=== PATIENT | female | born 1995 | race Caucasian/White ===

== ENCOUNTER 2021-03-12 16:00 | Outpatient (RCR) | payer BC, SELFPAY ==
--- NOTE | 2021-02-28 16:05 | HP.PTEVAL_ITS ---
Patient's Visit Information BRANDY BEAN is a 25 year old F referred to Physical Therapy by SUE CANNON with a diagnosis of L posterior tibial tendonits. Date of Evaluation: 02/28/21 Physical Therapist: Lauri Prescott, PT, ATC - Visit Plan Frequency: 2-3x /Week Duration: 4-6 Weeks Plan: Core strengthening, L toe/ankle mobilizations (no mid foot), L ankle stretching and strengthening, balance and proprio, bike, and HEP - Subjective Pt reports her L foot has been sore for 7 1/2 weeks. Pt notes she is an avid runner, and reports she ran 3 miles one day and 2 miles the next and was unable to walk the following day. Pt reports she went to her orthopedic where she received x-rays and was told there is no fracture. Pt reports she was told she has tendonitis and a ganglion cyst in her L foot. Pt denies tingling or numbness at this time. Pt denies pain in her R foot. Pt reports she was in a boot for 4 weeks, and then weaned her way out of it. Pt reports the pain is much less now, but notes even if she attempts to ambulate now for a prolonged time that her pain returns. Pt denies sleep difficulty secondary to pain. Pt reports she is not limited from any other activity. 0/10 pain at rest, 5/10 pain with prolonged ambulation - Pain L foot Pain Intensity (Out of 10): 0 Pain Intensity Range: 5 - Objective Neuro: B LE sensation is WNL to light touch. B achilles reflex= 2/3. Palpation: Pt is very sore on the head of the first metarsal. No obvious deformity at this time. ROM: L ankle DF= 4, PF= 75 degrees: R ankle DF= 7, PF= 75 degrees. MMT: L ankle PF and INV= 4-/5 and are painful. All other B ankle 5/5 throughout. Gait: Pt ambulates with valgus in the knee region Bilat indicating core weakness. Same occurs with lunging - Balance/Special Test Scores Lower Extremity Functional Score: 67 - Goals Goal 1:: Decrease L ankle pain x 50% to aid with ambulation Goal Time Frame: 4-6 Weeks Goal 2:: Increase L ankle DF ROM x 10 degrees to aid with decreasing L ankle pain Goal 3:: Increase L ankle strength x 1 grade to aid with return to running without limitation Goal Time Frame: 4-6 Weeks Goal 4:: I with HEP Goal Time Frame: 4-6 Weeks - Rehabilitation Potential Physical Therapy Diagnosis: L medial ankle pain, weakness, and limited ROM secondary to L posterior tibial tendonitis Rehabilitation Potential: Good - Anticipated Interventions Patient/Client Instruction: Educate patient on: Condition, Plan of Care For the Purpose of:: To improve self management Therapeutic Exercise to Include: Strength training, Endurance training, Balance training, Flexibilty training, Active ROM, Dynamic Lumbar Stabilization For the Purpose of:: To decrease pain, To increase ROM, To improve muscle performance and motor function Cryotherapy (ice pack, ice massage): Yes For the Purpose of:: To decrease pain Thank you for the opportunity to evaluate your patient. For Medicare and Medicare HMO plans, please review the plan of care and approve it. It will need to be FAXED BACK to us at [phone] for Medicare purposes. For Medicare only, by signing this I certify the plan of care. Please let me know if there are questions or concerns regarding this plan of care. Physician Signature: Dat e:
--- NOTE | 2021-06-04 09:41 | HP.PT.NRP ---
BARNDY BEAN was seen in my office for initial evaluation on 02/28/21. The following Plan of Care was established for this patient: Initial Frequency: 2-3x /Week Initial Duration: 4-6 Weeks Patient/Client Instruction: Educate patient on: Condition, Plan of Care For the Purpose of:: To improve self management Therapeutic Exercise to Include: Strength training, Endurance training, Balance training, Flexibilty training, Active ROM, Dynamic Lumbar Stabilization For the Purpose of:: To decrease pain, To increase ROM, To improve muscle performance and motor function Cryotherapy (ice pack, ice massage): Yes For the Purpose of:: To decrease pain This patient was last seen in our office . Pertinent comments regarding their Physical therapy will appear below: Pt was treated for 3 PT visits for L LE pain through the date of 03/12/21. Pt has not returned today and is therefore discontinued at this time. At this point I will be discontinuing this patient from physical therapy. I would be happy to see this patient again in the future if found appropriate by the physician. Thank you! Lauri Prescott, PT, ATC Balance/Gait/Functional tests - Balance/Special Test Scores Lower Extremity Functional Score: 67
== END 2021-03-12 19:00 | disposition home or self-care (01) ==
LOC: PT 16:00
PROVIDERS: Visit Provider Orthopaedic Surgery
DX: M76.822 Posterior tibial tendinitis, left leg (principal)
CPT/HCPCS: 97110; 97140; 97161

== ENCOUNTER → 2021-12-26 | Outpatient (CLI) | payer BC, SELFPAY ==
[2021-12-26 17:50] LABS: Absolute Lymphocyte Count 3.05 X10^3/uL (0.83-4.51); Absolute Neutrophil Count 6.4 X10^3/uL (2.0-7.7); Basophil# 0.05 X10^3/uL; Basophil% 0.5 % (0-1); Eosinophil# 0.19 X10^3/uL; Eosinophils% 1.8 % (0-5); Hematocrit 46.8 % (37-47); Hemoglobin 15.3 g/dL (12.0-15.0); Lymphocyte # 3.05 X10^3/ul (0.83-4.51); Lymphocyte % 29.6 % (19-41); Mean Corp Hgb Conc 32.7 g/dL (32-36); Mean Corpuscular Hgb 30.9 pg (27.0-32.0); Mean Corpuscular Volume 94.5 fL (81-99); Mean Platelet Vol. 10.9 fl (6.2-12.0); Monocyte# 0.61 X10^3/uL; Monocyte% 5.9 % (0-10); NRBC Flagged by Analyzer 0 % (0-5); Neutrophil # 6.38 X10^3/uL (2.7-7.7); Neutrophil % 61.9 % (47-70); Platelet Count 318 K/mm3 (150-450); RBC Distribution Width CV 11.9 % (11.6-14.6); RBC Distribution Width SD 41.4 fl (35.1-43.9); Red Blood Count 4.95 M/mm3 (4.2-5.4); White Blood Count 10.3 K/mm3 (4.4-11.0)
[2021-12-26 18:09] LABS: Vitamin B12 377 pg/mL (211-911); Vitamin D,25 Hydroxy 47.2 ng/mL
[2021-12-26 18:22] LABS: ALB/GLOB Ratio 1.1 RATIO (0.9-2.4); AST(SGOT) 18 U/L (15-37); Alanine Aminotransfer ALT/SGPT 24 U/L (13-56); Albumin, Serum 4.3 g/dL (3.2-5.0); Alkaline Phosphatase 58 U/L (45-117); Anion Gap 7 (5-15); BUN 16 mg/dL (7-18); Calcium,Total 9.9 mg/dL (8.5-10.1); Chloride 106 mmol/L (98-107); Cholesterol 196 mg/dL (200); EST Glomerular Filtration Rate 91 mL/min (>60); Est Glom Filt Rate - Afr Amer 110 mL/min (>60); Ferritin 52 ng/mL (8-252); Globulin 3.9 g/dL (2.2-4.2); Glucose 95 mg/dL (74-106); High Density Lipoprotein 74 mg/dL; Protein, Total 8.2 g/dL (6.4-8.2); Sodium Level 139 mmol/L (136-145); Thyroid Stim Hormone (TSH) 1.55 uIU/mL (0.358-3.74); Triglycerides 78 mg/dL; Very Low Density Lipoprotein 16 mg/dL (5-40)
== END | disposition home or self-care (01) ==
LOC: MFPLAB 15:50
PROVIDERS: PCP Family Medicine; Referring Provider Family Medicine; Visit Provider Family Medicine
DX: Z13.0 Encounter for screening for diseases of the blood and blood-forming organs and certain disorders involving the immune mechanism (principal); Z13.220 Encounter for screening for lipoid disorders; Z13.29 Encounter for screening for other suspected endocrine disorder; R53.83 Other fatigue
CPT/HCPCS: 36415; 80053; 80061; 82306; 82607; 82728; 84443; 85025